=== PATIENT | male | born 1980 | race Caucasian/White ===

== ENCOUNTER 2022-06-18 14:26 | Emergency (ER) | payer OTHER ==
[2022-06-18 15:25] LABS: CREATININE 0.75 mg/dL (0.67-1.17); POTASSIUM 4.5 mmol/L (3.5-5.1)
[2022-06-18 15:28] LABS: BASOPHIL 0.4 % (0-2); EOSINOPHIL 2.3 % (0-5); HCT 43.4 % (42.0-52.0); HGB 14.5 g/dl (13.2-18.0); LYMPHOCYTE 36.3 % (15-48); MCH 30.7 pg (25.0-31.0); MCHC 33.4 g/dL (32.0-36.0); MCV 91.9 fL (78.0-100.0); MONOCYTE 10.8 % (0-12); MPV 10.6 fL (6.0-9.5); NRBC 0; PLT 186 K/uL (150-400); RBC 4.72 M/uL (4.70-6.00); RDW 13.2 % (11.5-14.0); WBC 4.7 K/uL (4.0-10.5)
== END 2022-06-18 16:30 | disposition home or self-care (01) ==
LOC: FER 14:26
PROVIDERS: Emergency Medicine
DX: R07.89 Other chest pain (principal); F20.9 Schizophrenia, unspecified; Z28.310 Unvaccinated for COVID-19
CPT/HCPCS: 36415; 71045; 80048; 84484; 85025; 93005